=== PATIENT | female | born 1940 | race Caucasian/White ===

== ENCOUNTER 2016-06-29 00:41 | Observation (INO) | payer MEDICARE, MEDICAID ==
[2016-06-29 03:54] LABS: Urine Bacteria 1+ (Absent); Urine Bilirubin Negative (Negative); Urine Glucose Negative (Negative); Urine Nitrite Negative (Negative)
[2016-06-29] MEDS ORDERED: Ciprofloxacin 400MG IVPREMIX(* 400 MG/200 ML BAG IVPB ONE (04:21)
[2016-06-29] MEDS ORDERED: NS 0.9% 1000 ML* 2,000 ML IV ONE (04:21)
[2016-06-29 05:07] LABS: Hematocrit 37 % (35-47); Hemoglobin 12.3 g/dl (12.0-16.0); Mean Corpuscular HGB Conc 34 g/dl (31-36); Mean Corpuscular Hemoglobin 31 pg (27-31); Mean Corpuscular Volume 92 fL (80-97); Mean Platelet Volume 8 um3 (7.4-10.4); Red Blood Count 3.97 10^6/ul (4.0-5.4); Red Cell Distribution Width 14 % (10.5-15); White Blood Count 10.2 10^3/ul (3.5-10.8)
[2016-06-29 05:16] LABS: Calcium 10.7 mg/dL (8.6-10.3); EGFR African American 77.1 (>60); EGFR Non-African American 59.9 (>60); Potassium 4.2 mmol/L (3.5-5.0)
[2016-06-29] MEDS ORDERED: Senna TAB PO PRN (07:41)
[2016-06-29] MEDS ORDERED: Dextrose 50% Syringe 50 ML* 25 GM/50 ML SYRINGE IV PUSH PRN (07:53)
--- NOTE | 2016-06-29 07:54 | ADMNOTE ---
Subjective Date of Service: 06/29/16 Interval History: ADMISSION HISTORY AND PHYSICAL EXAM: Allergies Allergy/AdvReac Type Severity Reaction Status Date / Time No Known Allergies Allergy Verified 06/29/16 07:21 Home Medications Medication Instructions Recorded Confirmed Type Aspirin [Aspirin 81 MG TAB] 81 mg PO 06/29/16 History Atenolol TAB* [Tenormin TAB* 50 MG] 50 mg PO DAILY 06/29/16 06/29/16 History Calcium Carbonate-Vitamin D 2 tab PO 06/29/16 History [Calcium 600+D] Cyanocobalamin [Vitamin B 12] 1,000 mcg PO DAILY 06/29/16 06/29/16 History Docusate Sodium [Stool Softener] 100 mg PO DAILY 06/29/16 06/29/16 History Magnesium [Magnesium] 800 mg PO BID 06/29/16 06/29/16 History Memantine TAB* [Namenda TAB*] 28 mg PO DAILY 06/29/16 06/29/16 History Metformin HCl [Glucophage] 850 mg PO BID 06/29/16 06/29/16 History Multiple Vitamin [Multi Vitamin] 1 tab PO 06/29/16 History [place]-3 Fatty Acids [Fish Oil] 1,500 mg PO 06/29/16 History Senna TAB* [Senokot TAB*] 1 tab PO BID PRN 06/29/16 06/29/16 History Simvastatin TAB(NF) [Zocor(NF)] 20 mg PO 1700 06/29/16 06/29/16 History Vinpocetine 5 mg PO DAILY 06/29/16 06/29/16 History HPI: The patient lives with her daughter. She has had about 3or more UTI's treated by Dr. Oscar Ruiz in the past 12 months. The daughter noticed her mother's urine smelled bad and the patient seemd to have dysuria by her posture and facial expresion while voiding. The daughter also noted that her mother seemed more tired although the daughter also states that her mother "doen't do anything." Family History: Findings - DM, CAD, Parkinson's in her children Social History: Findings - Ex-smoker. Lives with her daugter who is her SDM. No alcohol abuse. Past Medical History: Findings - CABG, colostomy, 8 children Review of Systems - Review of Systems Constitutional Symptoms: Negative: Weight Gain, Weight Loss, Weakness, Fatigue, Fever, Night Sweats, Unexplained Falls, Other Dermatology: Positive: Normal HEENT: Positive: Normal Eyes: Positive: Normal Thyroid: Positive: Normal Pulmonary: Positive: Normal Cardiology: Positive: Normal Gastroenterology: Positive: Normal Genital - Urinary: Positive: Dysuria Musculoskeletal: Negative: Joint Pain, Joint Stiffness, Arthritis, Osteoporosis, Low Back Pain , Sciatica, Joint Deformities, Kyphoscoliosis, Other Endocrinology: Positive: Diabetes Mellitus Hematologic/Lymphatic: Positive: Anemia Neurology: Positive: Change in Memory Psychiatry: Positive: Normal Allergic/Immunologic: Negative: Hx Anaphylaxis, Hx Angioedema, Hx Environmental, Hx Seasonal, Athsma, Hx HIV, Immunocompromise, Swollen Glands LymphNodes, Other Objective Active Medications: Aspirin (Aspirin Ec Low Dose*) 81 mg PO DAILY JORDEN Atenolol (Tenormin Tab*) 25 mg PO DAILY JORDEN Memantine (Namenda Tab*) 28 mg PO DAILY JORDEN Metformin HCl (Glucophage*) 850 mg PO BID JORDEN Non-Formulary Medication (Docusate Sodium [Stool Softener]) 100 mg PO DAILY JORDEN Non-Formulary Medication (Cyanocobalamin [Vitamin B 12]) 1,000 mcg PO DAILY JORDEN Senna (Senokot Tab*) 1 tab PO BID PRN PRN Reason: CONSTIPATION Simvastatin (Zocor(Nf)) 20 mg PO 1700 JORDEN Vital Signs 06/29/16 06/29/16 07:00 07:39 Temperature 99.3 F Pulse Rate 60 Blood Pressure 142/55 (mmHg) O2 Sat by Pulse 98 Oximetry Oxygen Devices in Use Now: None Appearance: Supine on ED stretcher, sleeping. Looks comfortable. Eyes: No Scleral Icterus Ears/Nose/Mouth/Throat: Clear Oropharnyx, Mucous Membranes Moist Neck: NL Appearance and Movements; NL JVP, No Thyroid Enlargement, Masses Respiratory: Symmetrical Chest Expansion and Respiratory Effort, Clear to Auscultation, Clear to Percussion Cardiovascular: NL Sounds; No Murmurs; No JVD, RRR, No Edema, - Abdominal: NL Sounds; No Tenderness; No Distention, No Hepatosplenomegaly, - Extremities: No Edema, No Clubbing, Cyanosis, - Skin: No Rash or Ulcers, No Nodules or Sclerosis, - Neurological: - - Sleeping, does not wake during exam. No tremor. Daughter states pt is non-verbal. Result Diagrams: 06/29/16 04:45 06/29/16 04:45 Additional Lab and Data: Lab Results 06/29/16 Range/Units 03:30 Urine Color Straw Urine Appearance Turbid Urine pH 7.0 (5-9) Ur Specific [place] 1.018 (1.010-1.030) Urine Protein 1+(30 mg/dl) H (Negative) Urine Ketones Trace H (Negative) Urine Blood Negative (Negative) Urine Nitrate Negative (Negative) Urine Bilirubin Negative (Negative) Urine Urobilinogen Negative (Negative) Ur Leukocyte Esterase Negative (Negative) Urine WBC (Auto) 1+(6-10/hpf) H (Absent) Urine RBC (Auto) 1+(3-5/hpf) H (Absent) Ur Squamous Epith Cells Present H (Absent) Urine Bacteria 1+ H (Absent) Urine Glucose Negative (Negative) Urine Ascorbic Acid * H (Negative) Assess/Plan/Problems-Billing Assessment: - Patient Problems (1) UTI (urinary tract infection) Current Visit: Yes Status: Acute Comment: Ciprofloxacin given in ED. Start cefuroxime. US kidneys and bladder. Had 1 L NS, monitor I&O's. (2) Dementia Current Visit: Yes Status: Acute Code(s): F03.90 - UNSPECIFIED DEMENTIA WITHOUT BEHAVIORAL DISTURBANCE SNOMED Code(s): 54765103 Comment: Advanced dementia. Continue memantine. (3) CAD (coronary artery disease) Current Visit: Yes Status: Acute Code(s): I25.10 - ATHSCL HEART DISEASE OF [place] CORONARY ARTERY W/O ANG PCTRS SNOMED Code(s): 82140008 Comment: Reduce atenolol due to low diastolic BP. Continue ASA, statin. (4) Diabetes Current Visit: Yes Status: Acute Code(s): E11.9 - TYPE 2 DIABETES MELL[place] WITHOUT COMPLICATIONS SNOMED Code(s): 85647707 Comment: Continue metformin. No IV contrast given or planned. Lispro SS achs.
[2016-06-29] MEDS ORDERED: Enoxaparin(*) 40 MG/0.4 ML SYR SUBCUT SCH (08:00)
[2016-06-29 08:15] LABS: Magnesium 2.2 mg/dL (1.9-2.7)
[2016-06-29] MEDS: metFORMIN* 850 MG TAB PO SCH ×2 (09:49→17:02)
[2016-06-29] MEDS: Memantine XR CAP* 28 MG CAP.XR PO SCH ×2 (09:49→09:58)
[2016-06-29] MEDS: Cyanocobalamin TAB* 500 MCG PO SCH (09:49)
[2016-06-29] MEDS: ceFUROXime TAB(*) 250 MG PO SCH ×2 (09:49→21:43)
[2016-06-29] MEDS: Aspirin EC Low Dose* 81 MG TAB.EC PO SCH ×2 (09:49→10:43)
[2016-06-29] MEDS: Docusate CAP* 100 MG PO SCH (09:50)
[2016-06-29] MEDS: Atenolol TAB* 25 MG PO SCH (09:50)
[2016-06-29] MEDS ORDERED: Magnesium Hydroxide LIQ* 30 ML UDC PO ONE (10:06)
[2016-06-29] MEDS: Insulin LISPRO* 1 UNITS UNIT SUBCUT SCH ×3 (12:13→21:43)
[2016-06-29] MEDS ORDERED: Atorvastatin* 10 MG TAB PO SCH (17:00)
--- NOTE | 2016-06-29 19:14 | RAD ---
INDICATION: Frequent urinary tract infections. COMPARISON: There are no prior studies available for comparison. TECHNIQUE: Multiple real-time images of the kidneys and urinary bladder were obtained. FINDINGS: The kidneys are normal in size shape and echogenicity. The right kidney measured 9.3 x 5.0 x 5.4 cm and the left kidney measured 9.2 x 5.3 x 4.9 cm. No significant focal abnormality or hydronephrosis was present. There is mild diffuse thickening of the bladder wall. There are bilateral ureteral jets present within the urinary bladder.. The patient voided during the exam. IMPRESSION: MILD DIFFUSE THICKENING OF THE WALL OF THE URINARY BLADDER CONSISTENT WITH INCOMPLETE DISTENTION OR CYSTITIS.
[2016-06-30 07:46] VITALS: BP 119/37
[2016-06-30] MEDS: Atenolol TAB* 25 MG PO SCH (07:57)
[2016-06-30] MEDS: metFORMIN* 850 MG TAB PO SCH (08:19)
[2016-06-30] MEDS: ceFUROXime TAB(*) 250 MG PO SCH (08:19)
[2016-06-30] MEDS: Memantine XR CAP* 28 MG CAP.XR PO SCH (08:19)
[2016-06-30] MEDS: Cyanocobalamin TAB* 500 MCG PO SCH (08:19)
[2016-06-30] MEDS: Insulin LISPRO* 1 UNITS UNIT SUBCUT SCH ×2 (08:20→12:16)
[2016-06-30] MEDS ORDERED: Aspirin Low Dose CHEW TAB* 81 MG PO SCH (09:00)
[2016-06-30] MEDS: Docusate CAP* 100 MG PO SCH (09:17)
--- NOTE | 2016-06-30 15:19 | DS ---
CC: Dr. Halle Ruiz; Dr. Matthews. DISCHARGE SUMMARY: DATE OF ADMISSION: DATE OF DISCHARGE: 06/30/16 HOSPITAL COURSE: This 75-year-old woman presented with foul-smelling urine and dysuria. The history is obtained per her daughter with whom she lives. The patient herself has advanced dementia and is nonverbal and could not give any history at all. The patient has had frequent UTIs. She has an appointment to see Dr. Matthews in the very near future. The patient was given a dose of ciprofloxacin in the emergency room. The daughter was concerned about side effects from quinolones which is certainly a consideration. I note her urine culture in March showed E. coli resistant to cefazolin but sensitive to ceftriaxone. I put her on cefuroxime. The daughter noted the morning on the day of discharge that the patient's urine seemed much better in appearance and odor. The patient was acting normally, taking adequate fluid and nutrition. The daughter stayed the night and fed the patient. The patient really had no behavioral disturbances. She is very extremely passive and basically bedridden. She was afebrile. Vital signs were unremarkable. LABORATORY DATA AT DISCHARGE: BUN of 30, creatinine of 0.91. She received intravenous fluids during this hospital stay. Calcium was 10.1, slightly elevated related to dehydration, not to mention her immobility. This could be followed up later as an outpatient. FINAL DIAGNOSES: 1. Probable urinary tract infection. Note, negative ultrasound of kidneys and bladder with low residual volume. 2. Dementia. 3. Coronary artery disease. 4. Diabetes. DISCHARGE MEDICATIONS: 1. Cefuroxime 500 mg b.i.d. for 6 days. 2. Docusate 100 mg daily. 3. Magnesium 800 mg b.i.d. 4. Vitamin B12 1000 mg daily. 5. Vinpocetine 5 mg daily. 6. Simvastatin 20 mg daily at 5 p.m. 7. Metformin 850 mg b.i.d. 8. Senna 1 b.i.d. 9. Memantine 28 mg daily. 10. Atenolol 50 mg daily. 11. [place]-3 fatty acids 1500 mg as prescribed. 12. Multivitamin as prescribed. 13. Calcium and vitamin D two tabs daily. 14. Aspirin 81 mg daily. [id number]/[facility] #: [id number] [facility]
== END 2016-06-30 12:15 | disposition home or self-care (01) ==
LOC: ED 00:41 → MEDTELE 06:57
PROVIDERS: ADMIT Internal Medicine; ATTEND Internal Medicine
DX: N39.0 Urinary tract infection, site not specified (principal); F03.90 Unspecified dementia, unspecified severity, without behavioral disturbance, psychotic disturbance, mood disturbance, and anxiety; I25.10 Atherosclerotic heart disease of native coronary artery without angina pectoris; E11.9 Type 2 diabetes mellitus without complications; Z79.84 Long term (current) use of oral hypoglycemic drugs; Z79.899 Other long term (current) drug therapy; Z87.891 Personal history of nicotine dependence
CPT/HCPCS: 36415; 76770; 80048; 81003; 81015; 83735; 85027; 87040; 87077; 87086; 87186; 96361; 96365; 99284; A9270-GY; G0378; J0744

== ENCOUNTER → 2018-12-01 11:46 | Day surgery (SDC) | payer MEDICARE, MEDICAID ==
[~2018-12-01 11:46] MED LIST: Buffered Lidocaine 1% SYRIN* 1 ML/SYRINGE INTRADERM ONE; Bupivacaine 0.25% SDV PF* 10 ML VIAL INJ ONE; Bupivacaine 0.5%* 50 ML MDV VIAL ONE; Lactated Ringers 1000 ML Bag* 1,000 ML IV SCH; Lidocaine 2% PF * 5 ML VIAL ONE; Naloxone* 0.4 MG/ML 1 ML VIAL IV PRN; Propofol* 10 MG/ML 20 ML BTL ONE; ceFAZolin 2 GM in NS PREMIX(*) 2 GM/100 ML BAG IVPB ONE
[2018-12-01 18:00] VITALS: BP 148/72
== END | disposition home or self-care (01) ==
LOC: OR 11:46
PROVIDERS: ATTEND Plastic Surgery
DX: D03.62 Melanoma in situ of left upper limb, including shoulder (principal); G30.9 Alzheimer's disease, unspecified; F02.80 Dementia in other diseases classified elsewhere, unspecified severity, without behavioral disturbance, psychotic disturbance, mood disturbance, and anxiety; E11.9 Type 2 diabetes mellitus without complications; Z79.84 Long term (current) use of oral hypoglycemic drugs; I10 Essential (primary) hypertension; R13.10 Dysphagia, unspecified; I25.10 Atherosclerotic heart disease of native coronary artery without angina pectoris; Z95.1 Presence of aortocoronary bypass graft; Z87.891 Personal history of nicotine dependence
CPT/HCPCS: 88305; 88311; J0690; J2704; J3490

== ENCOUNTER 2019-05-02 17:47 | Emergency (ER) | payer MEDICARE, MEDICAID ==
--- NOTE | 2019-05-02 18:04 | ED ---
Shortness of Breath - HPI Summary HPI Summary: Patient has history of dementia, unable to provide history of present illness. Patient lives with daughter states she brought patient in for intermittent low- grade fever, fatigue and noisy breathing 2 days. Daughter has been giving patient Mucinex, but states noise of breathing is progressing. Denies rash, vomiting, indication of pain, diarrhea, change in Baseline mental status. Patient medical history is CAD with bypass 10 years ago (no cardiac workup since ), DM, dementia. - History of Current Complaint Chief Complaint: EDRespiratoryDistress Time Seen by Provider: 05/02/19 18:01 Hx Obtained From: Family/Supervisor [employer] Onset/Duration: Gradual Onset, Lasting Days Timing: Constant Current Severity: Moderate Dyspnea At: Rest Aggravating Factors: Nothing Alleviating Factors: Nothing Associated Signs & Symptoms: Wheezing, Fever - Allergy/Home Medications Allergies/Adverse Reactions: Allergies Allergy/AdvReac Type Severity Reaction Status Date / Time sulfamethoxazole Allergy Hives Verified 12/01/18 13:49 [From Bactrim] trimethoprim [From Bactrim] Allergy Hives Verified 12/01/18 13:49 PMH/Surg Hx/FS Hx/Imm Hx Endocrine/Hematology History: Reports: Hx Diabetes - TYPE II- ON ORAL MEDICATION FOR, Hx Anemia Cardiovascular History: Reports: Hx Angina - HX OF PRIOR TO BYPASS, Hx Coronary Artery Disease - BYPASS-2004 SURGERY, Hx Hypertension - ON MEDICATION FOR Denies: Hx Pacemaker/ICD, Other Cardiovascular Problems/Disorders Respiratory History: Denies: Other Respiratory Problems/Disorders GI History: Denies: Other GI Disorders History: Reports: Other Problems/Disorders - HX OF BLADDER INFECTIONS- REPORTS NONE RECENTLY Denies: Hx Renal Disease Musculoskeletal History: Reports: Other Musculoskeletal History - RIGID-DOES NOT AMBULATE-TRANSPORTATION VIA WHEELCHAIR Denies: Hx Arthritis, Hx Osteoporosis Sensory History: Reports: Hx Cataracts, Hx Contacts or Glasses - GLASSES Denies: Hx Hearing Aid Opthamlomology History: Reports: Hx Cataracts, Hx Contacts or Glasses - GLASSES Neurological History: Reports: Hx Dementia - End stage Alzheimer's disease, Other Neuro Impairments/Disorders - [id number] DISEASE Psychiatric History: Denies: Hx Panic Disorder - Surgical History Surgery Procedure, Year, and Place: CATARACTS. CARDIAC BYPASS - TRIPLE. ( CHEST CLEARED OF OTHER IMPLANTS, STERNAL WIRES AND EVIDENCE OF BYPASS). COLON RESECTION. CYST REMOVED FROM ARM Hx Anesthesia Reactions: No - UNKNOWN - Immunization History Date of Tetanus Vaccine: unk Date of Influenza Vaccine: none Infectious Disease History: Unable to Obtain/Confirm Infectious Disease History: Denies: Traveled Outside the [place] in Last 30 Days - Family History Known Family History: Positive: None, Unknown - Social History Alcohol Use: None Hx Substance Use: No Substance Use Type: Reports: None Hx Tobacco Use: - Level 5 CAVEAT secondary to dementia Smoking Status (MU): Former Smoker Have You Smoked in the Last Year: No Review of Systems Positive: Fever Eyes: Negative ENT: Negative Cardiovascular: Negative Positive: Shortness Of Breath Gastrointestinal: Negative Genitourinary: Negative Musculoskeletal: Negative Skin: Negative Neurological: Negative Psychological: Normal All Other Systems Reviewed And Are Negative: Yes Physical Exam Triage Information Reviewed: Yes Vital Signs On Initial Exam: Initial Vitals Temp Pulse Resp BP Pulse Ox 97.4 F 58 20 205/92 96 05/02/19 17:55 05/02/19 17:55 05/02/19 17:55 05/02/19 17:55 05/02/19 17:55 Vital Signs Reviewed: Yes Appearance: Positive: Well-Appearing Skin: Positive: Warm Head/Face: Positive: Normal Head/Face Inspection Eyes: Positive: Normal Neck: Positive: Supple Respiratory/Lung Sounds: Positive: Rhonchi Cardiovascular: Positive: Normal Abdomen Description: Positive: Nontender Musculoskeletal: Positive: Normal Neurological: Positive: Normal Psychiatric: Positive: Normal AVPU Assessment: Alert - Linda Coma Scale Best Eye Response: 4 - Spontaneous Best Motor Response: 6 - Obeys Commands Best Verbal Response: 5 - Oriented Coma Scale Total: 15 Procedures - Sedation Patient Received Moderate/Deep Sedation with Procedure: No Diagnostics - Vital Signs Vital Signs Temp Pulse Resp BP Pulse Ox 05/02/19 17:55 97.4 F 58 20 205/92 96 - Laboratory Result Diagrams: 05/02/19 18:25 05/02/19 18:25 Lab Statement: Any lab studies that have been ordered have been reviewed, and results considered in the medical decision making process. Course/Dx - Course Course Of Treatment: Patient has history of dementia, unable to provide history of present illness. Patient lives with daughter states she brought patient in for intermittent low-grade fever, fatigue and noisy breathing 2 days. Daughter has been giving patient Mucinex, but states noise of breathing is progressing. Denies rash, vomiting, indication of pain, diarrhea, change in Baseline mental status. Patient medical history is CAD with bypass 10 years ago (no cardiac workup since), DM, dementia, hypertension. Elevated BP. Bradycardic, history of same. Patient states compliant with blood pressure medications. Vital signs within normal limits otherwise. Hemoglobin 11.1, patient baseline. Labs otherwise unremarkable. Chest x-ray negative for acute process. Patient positive for flu b. EKG sinus bradycardia with heart rate of 57, prolonged [place] interval. No prior on file. UA positive for UTI. Daughter states patient has chronic recurrent UTI, per primary care they do not always treat. Daughter will consult with PCP on treating UTI. Tamiflu given here in the ED. Rx for same. - Diagnoses Provider Diagnoses: Flu, UTI (urinary tract infection) Discharge ED - Sign-Out/Discharge Documenting (check all that apply): Patient Departure - Discharge Plan Condition: Stable Disposition: HOME Prescriptions: Oseltamivir CAP* [Tamiflu CAP*] 75 mg PO BID 5 Days #10 cap Patient Education Materials: Urinary Tract Infection in Women (ED), Influenza ( ED) Referrals: Halle Ruiz MD [Primary Care Provider] - Additional Instructions: Take Tamiflu as directed. Consult with your PCP regarding UTI treatment for patient. Return to the ED for any new or worsening symptoms. - Billing Disposition and Condition Condition: STABLE Disposition: Home
[2019-05-02 18:40] LABS: Hematocrit 32 % (35-47); Hemoglobin 11.1 g/dL (12.0-16.0); Mean Corpuscular HGB Conc 35 g/dL (31-36); Mean Corpuscular Hemoglobin 32 pg (27-31); Mean Corpuscular Volume 90 fL (80-97); Mean Platelet Volume 7.4 fL (7.4-10.4); Platelet Count 221 10^3/uL (150-450); Red Blood Count 3.49 10^6 /uL (3.70-4.87); Red Cell Distribution Width 14 % (10-15); White Blood Count 7.9 10^3/uL (3.5-10.8)
[2019-05-02 18:42] LABS: Influenza B Molecular POSITIVE (Negative)
[2019-05-02 18:53] LABS: Albumin 4.1 g/dL (3.2-5.2); Albumin/Globulin Ratio 1.4 (1-3); BUN/Creatinine Ratio 26.6 (8-20); C Reactive Protein 3.22 mg/L (<8.01); Calcium 9.8 mg/dL (8.6-10.3); EGFR African American 69.3 (>60); EGFR Non-African American 57.3 (>60); Potassium 4.2 mmol/L (3.5-5.0); Total Bilirubin 0.3 mg/dL (0.2-1.0); Total Protein 7.1 g/dL (6.4-8.9)
[2019-05-02 18:54] LABS: Troponin I 0.02 ng/mL (<0.03)
[2019-05-02] MEDS ORDERED: Oseltamivir SUSP 75 MG dose* 75 MG/12.5 ML ORAL.SYRIN PO ONE (19:44)
[2019-05-02 19:49] LABS: ABS Eosinophils 0.1 10^3/ul (0-0.6); ABS Lymphocytes 4.6 10^3/ul (1.0-4.8); ABS Monocytes 0.4 10^3/ul (0-0.8); ABS Neutrophils 2.8 10^3/ul (1.5-7.7); Eosinophil % 1.3 %; Lymphocyte % 58.3 %
[2019-05-02 20:19] LABS: Urine Appearance Turbid; Urine Bilirubin Negative (Negative); Urine Blood 1+ (Negative); Urine Color Amber; Urine Glucose Negative (Negative); Urine Ketones Negative (Negative); Urine Nitrite Positive (Negative); Urine Protein 1+(30 mg/dL) (Negative); Urine Specific Gravity 1.013 (1.010-1.030); Urine Urobilinogen Negative (Negative)
[2019-05-02 20:23] LABS: Urine Bacteria 2+ (Absent); Urine Red Blood Cell 3+(>10/hpf) (Absent); Urine Squamous Epithelial Cell Present (Absent); Urine Transitional Epithelial Present (Absent); Urine White Blood Cell 3+(>20/hpf) (Absent)
[2019-05-02] MEDS ORDERED: Cephalexin CAP* 500 MG PO ONE (20:57)
[2019-05-02 22:53] VITALS: BP 147/72
--- NOTE | 2019-05-05 12:48 | ED ---
Imaging and Labs Follow Up Follow Up Type: Labs/Cultures Labs/Culture Result: Urine culture >100k citrobacter freundii. Patient Communication/Plan: Pt. seen in ED for influenza. Urinalysis nitrate positive and provider informed family of UTI. Per ER note pt. with chronic UTI. Pt.'s family did not want pt. treated with antibx. and wanted to f.u with PCP. No change in treatment needed. Provider Diagnoses: Flu, UTI (urinary tract infection)
== END 2019-05-02 22:52 | disposition home or self-care (01) ==
LOC: ED 17:47
DX: J10.1 Influenza due to other identified influenza virus with other respiratory manifestations (principal); N39.0 Urinary tract infection, site not specified; Z87.440 Personal history of urinary (tract) infections; R00.1 Bradycardia, unspecified; E11.9 Type 2 diabetes mellitus without complications; Z79.84 Long term (current) use of oral hypoglycemic drugs; I10 Essential (primary) hypertension; G30.9 Alzheimer's disease, unspecified; F02.80 Dementia in other diseases classified elsewhere, unspecified severity, without behavioral disturbance, psychotic disturbance, mood disturbance, and anxiety; Z95.1 Presence of aortocoronary bypass graft; Z88.2 Allergy status to sulfonamides; Z87.891 Personal history of nicotine dependence
CPT/HCPCS: 36415; 71046; 80053; 81003; 81015; 82803; 84484; 85025; 86140; 87077; 87086; 87186; 93005; 99283; A9270-GY

== ENCOUNTER 2020-07-21 13:10 | Inpatient (IN) ==
[2020-07-21 14:22] LABS: ABS Lymphocytes 1.5 10^3/ul (1.0-4.8); ABS Monocytes 0.4 10^3/ul (0-0.8); ABS Neutrophils 7.3 10^3/ul (1.5-7.7); Eosinophil % 0.5 %; Hematocrit 36 % (35-47); Lymphocyte % 15.8 %; Mean Corpuscular HGB Conc 34 g/dL (31-36); Mean Corpuscular Hemoglobin 31 pg (27-31); Mean Corpuscular Volume 92 fL (80-97); Mean Platelet Volume 7.2 fL (7.4-10.4); Platelet Count 323 10^3/uL (150-450); Red Blood Count 3.88 10^6 /uL (3.70-4.87); Red Cell Distribution Width 15 % (10-15); White Blood Count 9.2 10^3/uL (3.5-10.8)
[2020-07-21 14:46] LABS: ALT 63 U/L (7-52); AST 51 U/L (13-39); Albumin 3.9 g/dL (3.2-5.2); Albumin/Globulin Ratio 1.1 (1-3); Alkaline Phosphatase 32 U/L (34-104); Anion Gap 13 mmol/L (2-11); Blood Urea Nitrogen 23 mg/dL (6-24); C Reactive Protein 152.88 mg/L (<8.01); CO2 Carbon Dioxide 20 mmol/L (22-32); Calcium 9.5 mg/dL (8.6-10.3); Chloride 102 mmol/L (101-111); EGFR African American 59.6 (>60); EGFR Non-African American 49.2 (>60); Globulin 3.4 g/dL (2-4); Glucose 296 mg/dL (70-100); Potassium 4.2 mmol/L (3.5-5.0); Sodium 135 mmol/L (135-145); Total Protein 7.3 g/dL (6.4-8.9)
[2020-07-21 14:56] LABS: Troponin I 0.04 ng/mL (<0.03)
[2020-07-21] MEDS ORDERED: Piperacillin/Tazobac ADVAN 3.375 GM in NS 0.9% 100 ml BAG 100 ML IV ONE (16:10)
[2020-07-21] MEDS ORDERED: Dextrose 50% Syringe 50 ml 25 GM/50 ML SYRINGE IV PUSH PRN (17:30)
[2020-07-21] MEDS ORDERED: Iodixanol (CONTRAST) 320 MG/ML 100 ML SDV IV ONE (17:44)
[2020-07-21] MEDS ORDERED: Zosyn per Pharmacy NOTE FOLLOW UP SCH (18:00)
[2020-07-21 18:20] LABS: Troponin I 0.04 ng/mL (<0.03)
[2020-07-21] MEDS: NS 0.9% 1000 ml BAG 1,000 ML IV SCH (21:38)
[2020-07-21] MEDS: Heparin 5000 UNITS/ML 1 mL VIAL SUBCUT SCH (23:15)
[2020-07-21] MEDS: ZOSYN 3.375 GM Q8H per EXTENDED INFUSION IV SCH (23:15)
[2020-07-21] MEDS: Nystatin TOP POWDER 15 GM BTL TOPICAL SCH (23:16)
[2020-07-21 23:21] LABS: Troponin I 0.12 ng/mL (<0.03)
[2020-07-22 03:19] LABS: Troponin I 0.13 ng/mL (<0.03)
[2020-07-22] MEDS ORDERED: Haloperidol 5 mg/ml SDV IV/IM 5 MG/ML AMP IV SLOW PU ONE (05:39)
[2020-07-22] MEDS: ZOSYN 3.375 GM Q8H per EXTENDED INFUSION IV SCH ×3 (05:51→22:48)
[2020-07-22] MEDS: Heparin 5000 UNITS/ML 1 mL VIAL SUBCUT SCH ×3 (05:51→22:47)
[2020-07-22 05:53] LABS: ABS Lymphocytes 1.5 10^3/ul (1.0-4.8); ABS Monocytes 0.4 10^3/ul (0-0.8); Eosinophil % 0.1 %; Hematocrit 33 % (35-47); Hemoglobin 11.1 g/dL (12.0-16.0); Lymphocyte % 25.8 %; Mean Corpuscular HGB Conc 34 g/dL (31-36); Mean Corpuscular Hemoglobin 31 pg (27-31); Mean Corpuscular Volume 93 fL (80-97); Mean Platelet Volume 7.7 fL (7.4-10.4); Nucleated Red Blood Cells % 0.2; Platelet Count 300 10^3/uL (150-450); Red Blood Count 3.54 10^6 /uL (3.70-4.87); Red Cell Distribution Width 15 % (10-15)
[2020-07-22 06:03] LABS: ALT 47 U/L (7-52); AST 26 U/L (13-39); Albumin 3.7 g/dL (3.2-5.2); Albumin/Globulin Ratio 1.2 (1-3); Alkaline Phosphatase 28 U/L (34-104); Anion Gap 14 mmol/L (2-11); Blood Urea Nitrogen 30 mg/dL (6-24); CO2 Carbon Dioxide 20 mmol/L (22-32); Calcium 9.2 mg/dL (8.6-10.3); Chloride 103 mmol/L (101-111); EGFR African American 59.6 (>60); EGFR Non-African American 49.2 (>60); Globulin 3.2 g/dL (2-4); Glucose 304 mg/dL (70-100); Indirect Bilirubin 0.4 mg/dL (0.3-1.0); Potassium 3.9 mmol/L (3.5-5.0); Sodium 137 mmol/L (135-145); Total Protein 6.9 g/dL (6.4-8.9)
[2020-07-22] MEDS: Aspirin EC 81 mg TAB.EC (enteric coated) PO SCH (08:47)
[2020-07-22] MEDS: Nystatin TOP POWDER 15 GM BTL TOPICAL SCH ×2 (10:23→20:18)
[2020-07-22] MEDS: NS 0.9% 1000 ml BAG 1,000 ML IV SCH (10:32)
[2020-07-22] MEDS ORDERED: NS 0.9% 1000 ml BAG 1,000 ML IV SCH ×2 (10:45→21:07)
[2020-07-22 15:03] LABS: Troponin I 0.07 ng/mL (<0.03)
[2020-07-23] MEDS: Heparin 5000 UNITS/ML 1 mL VIAL SUBCUT SCH ×3 (05:27→22:19)
[2020-07-23] MEDS: ZOSYN 3.375 GM Q8H per EXTENDED INFUSION IV SCH ×3 (05:28→22:19)
[2020-07-23] MEDS: Aspirin EC 81 mg TAB.EC (enteric coated) PO SCH (07:19)
[2020-07-23] MEDS: Nystatin TOP POWDER 15 GM BTL TOPICAL SCH ×2 (07:20→22:18)
[2020-07-23 08:51] LABS: ABS Eosinophils 0.1 10^3/ul (0-0.6); ABS Lymphocytes 2.9 10^3/ul (1.0-4.8); ABS Monocytes 0.5 10^3/ul (0-0.8); Eosinophil % 0.8 %; Hematocrit 31 % (35-47); Hemoglobin 10.4 g/dL (12.0-16.0); Lymphocyte % 33.9 %; Mean Corpuscular HGB Conc 34 g/dL (31-36); Mean Corpuscular Hemoglobin 31 pg (27-31); Mean Corpuscular Volume 92 fL (80-97); Mean Platelet Volume 7.3 fL (7.4-10.4); Platelet Count 351 10^3/uL (150-450); Red Blood Count 3.37 10^6 /uL (3.70-4.87); Red Cell Distribution Width 15 % (10-15); White Blood Count 8.4 10^3/uL (3.5-10.8)
[2020-07-23 09:12] LABS: Albumin 3.8 g/dL (3.2-5.2); Albumin/Globulin Ratio 1.2 (1-3); Calcium 9.4 mg/dL (8.6-10.3); EGFR African American 79.8 (>60); Globulin 3.2 g/dL (2-4); Potassium 3.6 mmol/L (3.5-5.0); Total Bilirubin 0.4 mg/dL (0.2-1.0)
[2020-07-23] MEDS ORDERED: Furosemide 40 mg/4 ml IV VIAL ONE (17:39)
[2020-07-23] MEDS ORDERED: Furosemide 40 mg/4 ml IV VIAL IV ONE (17:39)
[2020-07-24] MEDS: ZOSYN 3.375 GM Q8H per EXTENDED INFUSION IV SCH ×3 (05:10→21:19)
[2020-07-24] MEDS: Heparin 5000 UNITS/ML 1 mL VIAL SUBCUT SCH ×3 (05:10→21:19)
[2020-07-24 07:10] LABS: ABS Eosinophils 0.1 10^3/ul (0-0.6); ABS Lymphocytes 3.5 10^3/ul (1.0-4.8); ABS Monocytes 0.5 10^3/ul (0-0.8); ABS Neutrophils 4.4 10^3/ul (1.5-7.7); Eosinophil % 1.1 %; Hematocrit 29 % (35-47); Hemoglobin 9.7 g/dL (12.0-16.0); Lymphocyte % 40.9 %; Mean Corpuscular HGB Conc 34 g/dL (31-36); Mean Corpuscular Hemoglobin 31 pg (27-31); Mean Corpuscular Volume 91 fL (80-97); Mean Platelet Volume 7.6 fL (7.4-10.4); Nucleated Red Blood Cells % 0.1; Platelet Count 315 10^3/uL (150-450); Red Blood Count 3.17 10^6 /uL (3.70-4.87); Red Cell Distribution Width 14 % (10-15); White Blood Count 8.5 10^3/uL (3.5-10.8)
[2020-07-24 07:21] LABS: Calcium 9.1 mg/dL (8.6-10.3); EGFR Non-African American 57.9 (>60); Magnesium 1.5 mg/dL (1.9-2.7); Potassium 3.1 mmol/L (3.5-5.0)
[2020-07-24] MEDS ORDERED: Magnesium Sulf 4 GM/100 ML IV 4,000 MG/100 ML BAG IVPB ONE (08:00)
[2020-07-24] MEDS: KCL 20 MEQ/100 ML IVPREMIX 20 MEQ/100 ML BAG IV SCH ×2 (08:09→10:43)
[2020-07-24] MEDS: Aspirin EC 81 mg TAB.EC (enteric coated) PO SCH (09:01)
[2020-07-24 09:04] LABS: Urine Appearance Clear; Urine Color Straw
[2020-07-24 09:05] LABS: Urine Bilirubin Negative (Negative); Urine Blood Negative (Negative); Urine Glucose Negative (Negative); Urine Ketones Negative (Negative); Urine Nitrite Negative (Negative); Urine Protein Negative (Negative); Urine Urobilinogen Negative (Negative)
[2020-07-24 09:08] LABS: Urine Bacteria Absent (Absent); Urine Red Blood Cell Absent (Absent); Urine Squamous Epithelial Cell Present (Absent); Urine White Blood Cell 2+(11-20/hpf) (Absent)
[2020-07-24] MEDS ORDERED: Metoprolol Tartrate 5 mg VIAL 5 ml VIAL (1 mg/ml) ONE (10:07)
[2020-07-24] MEDS: Nystatin TOP POWDER 15 GM BTL TOPICAL SCH ×2 (11:00→21:21)
[2020-07-24] MEDS ORDERED: Iodixanol (CONTRAST) 320 MG/ML 100 ML SDV IV ONE (12:23)
[2020-07-24] MEDS ORDERED: Perflutren Lipid Microsphere 3 ML VIAL ONE (14:04)
[2020-07-25] MEDS: Heparin 5000 UNITS/ML 1 mL VIAL SUBCUT SCH ×3 (05:21→20:49)
[2020-07-25] MEDS: ZOSYN 3.375 GM Q8H per EXTENDED INFUSION IV SCH ×3 (05:22→20:50)
[2020-07-25 05:24] LABS: ABS Eosinophils 0.1 10^3/ul (0-0.6); ABS Lymphocytes 3.3 10^3/ul (1.0-4.8); ABS Monocytes 0.5 10^3/ul (0-0.8); ABS Neutrophils 4.4 10^3/ul (1.5-7.7); Eosinophil % 1.2 %; Hematocrit 27 % (35-47); Hemoglobin 9.2 g/dL (12.0-16.0); Mean Corpuscular HGB Conc 34 g/dL (31-36); Mean Corpuscular Hemoglobin 31 pg (27-31); Mean Corpuscular Volume 91 fL (80-97); Platelet Count 315 10^3/uL (150-450); Red Blood Count 2.97 10^6 /uL (3.70-4.87); Red Cell Distribution Width 15 % (10-15); White Blood Count 8.3 10^3/uL (3.5-10.8)
[2020-07-25 05:35] LABS: Activated Partial Thrombo Time 31.2 seconds (26.0-38.0); INR 1.1 (0.82-1.09)
[2020-07-25 05:39] LABS: Calcium 8.8 mg/dL (8.6-10.3); EGFR African American 79.8 (>60); Magnesium 2.2 mg/dL (1.9-2.7); Phosphorus 3.3 mg/dL (2.5-5.0); Potassium 3.2 mmol/L (3.5-5.0)
[2020-07-25] MEDS ORDERED: Potassium Chlor 20 meq TAB.ER PO ONE (05:57)
[2020-07-25] MEDS: KCL 10 MEQ/50 ML IVPREMIX 10 MEQ/50 ML BAG IV SCH ×4 (06:10→09:54)
[2020-07-25] MEDS: Aspirin EC 81 mg TAB.EC (enteric coated) PO SCH (07:19)
[2020-07-25] MEDS: Nystatin TOP POWDER 15 GM BTL TOPICAL SCH ×2 (07:21→20:50)
[2020-07-25] MEDS: Pantoprazole VIAL 40 MG VIAL IV SCH (10:09)
[2020-07-25] MEDS ORDERED: Rocuronium 50 mg VIAL 10 mg/ml 5 ml VIAL (50 mg) ONE ×2 (11:27→13:32)
[2020-07-25] MEDS ORDERED: Ketamine HCL 50 mg/ml 10 ml VIAL (500 MG) ONE (11:29)
[2020-07-25] MEDS ORDERED: Midazolam 2 mg/2 ml VIAL 1 mg/ml 2 ml VIAL (2 mg) ONE (11:30)
[2020-07-25] MEDS ORDERED: fentaNYL 100 mcg/2 ml 50 MCG/ML VIAL ONE (11:31)
[2020-07-25] MEDS ORDERED: Labetalol IV 5 MG/ML 20 ml VIAL ONE (13:50)
[2020-07-25] MEDS ORDERED: Lidocaine 2% PF 5 ML VIAL ONE (13:50)
[2020-07-25] MEDS ORDERED: Propofol 10 MG/ML 20 ML BTL ONE (13:50)
[2020-07-25] MEDS ORDERED: Phenylephrine 40 mcg/mL 10mL (400mcg) SYRINGE ONE (13:50)
[2020-07-25] MEDS ORDERED: Succinylcholine 200 mg VIAL 20 mg/ml 10 ml VIAL (200 mg) ONE (13:50)
[2020-07-25] MEDS ORDERED: Ondansetron 4 mg VIAL 2 MG/ML 2 ml VIAL ONE (13:50)
[2020-07-25] MEDS ORDERED: Acetaminophen IV 1 GM/100ML 100 ML ONE (14:10)
[2020-07-25] MEDS ORDERED: HYDROmorphone 1 MG/1 ML SYRINGE ONE (14:36)
[2020-07-25] MEDS ORDERED: hydrALAZINE 20 mg/ml 1 ML Vial IV ONE (16:11)
[2020-07-25] MEDS ORDERED: hydrALAZINE 20 mg/ml 1 ML Vial IV IV SLOW PU ONE (16:21)
[2020-07-25] MEDS ORDERED: Morphine 2 MG/ML SYRINGE IV PRN ×2 (16:23→16:28)
[2020-07-25] MEDS ORDERED: Ondansetron 4 mg VIAL 2 MG/ML 2 ml VIAL IV PRN (16:45)
[2020-07-25] MEDS: Acetaminophen IV 1 GM/100ML 1,000 MG/100 ML VIAL IVPB SCH (20:49)
[2020-07-25] MEDS: Morphine 2 MG/ML SYRINGE IV PRN (20:53)
[2020-07-26] MEDS: Morphine 2 MG/ML SYRINGE IV PRN ×4 (03:06→17:30)
[2020-07-26 03:35] LABS: ABS Lymphocytes 2.7 10^3/ul (1.0-4.8); ABS Monocytes 0.6 10^3/ul (0-0.8); ABS Neutrophils 6.8 10^3/ul (1.5-7.7); Eosinophil % 0.2 %; Hematocrit 33 % (35-47); Hemoglobin 11.1 g/dL (12.0-16.0); Lymphocyte % 26.8 %; Mean Corpuscular HGB Conc 34 g/dL (31-36); Mean Corpuscular Hemoglobin 31 pg (27-31); Mean Corpuscular Volume 92 fL (80-97); Mean Platelet Volume 7.1 fL (7.4-10.4); Platelet Count 382 10^3/uL (150-450); Red Blood Count 3.58 10^6 /uL (3.70-4.87); Red Cell Distribution Width 15 % (10-15); White Blood Count 10.1 10^3/uL (3.5-10.8)
[2020-07-26 03:46] LABS: Magnesium 1.9 mg/dL (1.9-2.7); Potassium 4.1 mmol/L (3.5-5.0)
[2020-07-26 03:52] LABS: EGFR African American 78.7 (>60); EGFR Non-African American 65.1 (>60); Phosphorus 4.7 mg/dL (2.5-5.0)
[2020-07-26] MEDS: Acetaminophen IV 1 GM/100ML 1,000 MG/100 ML VIAL IVPB SCH ×2 (05:11→14:44)
[2020-07-26] MEDS: Heparin 5000 UNITS/ML 1 mL VIAL SUBCUT SCH ×2 (05:11→17:30)
[2020-07-26] MEDS: ZOSYN 3.375 GM Q8H per EXTENDED INFUSION IV SCH ×3 (05:13→21:41)
[2020-07-26] MEDS ORDERED: Magnesium Sulfate IV 1GM/100ML 1 GM/100 ML BAG IV ONE (05:17)
[2020-07-26] MEDS: Pantoprazole VIAL 40 MG VIAL IV SCH (08:23)
[2020-07-26] MEDS ORDERED: D5LR 1000 ml BAG 1,000 ML IV SCH (09:00)
[2020-07-26] MEDS: Nystatin TOP POWDER 15 GM BTL TOPICAL SCH ×2 (10:38→21:13)
[2020-07-26] MEDS ORDERED: Dextrose 50% Syringe 50 ml 25 GM/50 ML SYRINGE IV PUSH PRN (11:31)
[2020-07-26] MEDS ORDERED: NS 0.9% 100 ml BAG 100 ML ONE (14:41)
[2020-07-27] MEDS: Morphine 2 MG/ML SYRINGE IV PRN (00:56)
[2020-07-27 04:57] LABS: Calcium 8.7 mg/dL (8.6-10.3); EGFR African American 75.6 (>60); EGFR Non-African American 62.5 (>60); Phosphorus 2.7 mg/dL (2.5-5.0); Potassium 3.4 mmol/L (3.5-5.0)
[2020-07-27] MEDS: ZOSYN 3.375 GM Q8H per EXTENDED INFUSION IV SCH (05:11)
[2020-07-27] MEDS: Heparin 5000 UNITS/ML 1 mL VIAL SUBCUT SCH ×2 (05:11→17:58)
[2020-07-27] MEDS: KCL 20 MEQ/100 ML IVPREMIX 20 MEQ/100 ML BAG IV SCH ×2 (05:49→08:59)
[2020-07-27] MEDS: Pantoprazole VIAL 40 MG VIAL IV SCH (08:59)
[2020-07-27] MEDS: Nystatin TOP POWDER 15 GM BTL TOPICAL SCH ×2 (10:49→22:11)
[2020-07-27] MEDS: hydrALAZINE 20 mg/ml 1 ML Vial IV IV SLOW PU PRN (11:35)
[2020-07-28] MEDS: Heparin 5000 UNITS/ML 1 mL VIAL SUBCUT SCH ×2 (05:50→17:53)
[2020-07-28 09:57] LABS: ABS Basophils 0.1 10^3/ul (0-0.2); ABS Eosinophils 0.1 10^3/ul (0-0.6); ABS Lymphocytes 3.2 10^3/ul (1.0-4.8); ABS Neutrophils 6.6 10^3/ul (1.5-7.7); Eosinophil % 1.1 %; Hematocrit 28 % (35-47); Hemoglobin 9.3 g/dL (12.0-16.0); Lymphocyte % 29.6 %; Mean Corpuscular HGB Conc 33 g/dL (31-36); Mean Corpuscular Hemoglobin 31 pg (27-31); Mean Corpuscular Volume 92 fL (80-97); Mean Platelet Volume 7.1 fL (7.4-10.4); Platelet Count 389 10^3/uL (150-450); Red Blood Count 3.03 10^6 /uL (3.70-4.87); Red Cell Distribution Width 15 % (10-15)
[2020-07-28] MEDS: Nystatin TOP POWDER 15 GM BTL TOPICAL SCH ×2 (10:06→20:46)
[2020-07-28] MEDS: Pantoprazole VIAL 40 MG VIAL IV SCH (10:08)
[2020-07-28 10:14] LABS: EGFR African American 88.4 (>60); Potassium 3.4 mmol/L (3.5-5.0)
[2020-07-28] MEDS ORDERED: KCL 10 MEQ/50 ML IVPREMIX 10 MEQ/50 ML BAG IV ONE (16:31)
[2020-07-28] MEDS: Morphine 2 MG/ML SYRINGE IV PRN (17:53)
[2020-07-29] MEDS: Heparin 5000 UNITS/ML 1 mL VIAL SUBCUT SCH ×2 (05:49→17:38)
[2020-07-29] MEDS: Pantoprazole VIAL 40 MG VIAL IV SCH (08:49)
[2020-07-29] MEDS: Nystatin TOP POWDER 15 GM BTL TOPICAL SCH ×2 (08:55→20:38)
[2020-07-29 10:21] LABS: ABS Eosinophils 0.1 10^3/ul (0-0.6); ABS Lymphocytes 3.2 10^3/ul (1.0-4.8); ABS Monocytes 0.7 10^3/ul (0-0.8); ABS Neutrophils 7.3 10^3/ul (1.5-7.7); Eosinophil % 0.9 %; Hematocrit 29 % (35-47); Hemoglobin 9.7 g/dL (12.0-16.0); Lymphocyte % 28.3 %; Mean Corpuscular HGB Conc 33 g/dL (31-36); Mean Corpuscular Hemoglobin 31 pg (27-31); Mean Corpuscular Volume 92 fL (80-97); Mean Platelet Volume 7.4 fL (7.4-10.4); Platelet Count 393 10^3/uL (150-450); Red Blood Count 3.18 10^6 /uL (3.70-4.87); Red Cell Distribution Width 15 % (10-15); White Blood Count 11.4 10^3/uL (3.5-10.8)
[2020-07-29 10:45] LABS: Calcium 8.9 mg/dL (8.6-10.3); EGFR African American 87.1 (>60); EGFR Non-African American 71.9 (>60); Potassium 3.4 mmol/L (3.5-5.0)
[2020-07-29] MEDS: KCL 20 MEQ/100 ML IVPREMIX 20 MEQ/100 ML BAG IV SCH ×2 (12:53→15:34)
[2020-07-30] MEDS: Heparin 5000 UNITS/ML 1 mL VIAL SUBCUT SCH ×2 (05:45→17:57)
[2020-07-30 08:58] LABS: ABS Basophils 0.1 10^3/ul (0-0.2); ABS Eosinophils 0.2 10^3/ul (0-0.6); ABS Lymphocytes 2.6 10^3/ul (1.0-4.8); ABS Monocytes 0.5 10^3/ul (0-0.8); ABS Neutrophils 8.4 10^3/ul (1.5-7.7); Eosinophil % 1.5 %; Hematocrit 27 % (35-47); Hemoglobin 8.7 g/dL (12.0-16.0); Lymphocyte % 21.7 %; Mean Corpuscular HGB Conc 33 g/dL (31-36); Mean Corpuscular Hemoglobin 30 pg (27-31); Mean Corpuscular Volume 92 fL (80-97); Platelet Count 384 10^3/uL (150-450); Red Blood Count 2.89 10^6 /uL (3.70-4.87); Red Cell Distribution Width 15 % (10-15); White Blood Count 11.9 10^3/uL (3.5-10.8)
[2020-07-30 09:16] LABS: Calcium 8.5 mg/dL (8.6-10.3); EGFR African American 100.5 (>60); Magnesium 1.5 mg/dL (1.9-2.7); Potassium 3.6 mmol/L (3.5-5.0)
[2020-07-30] MEDS: Pantoprazole VIAL 40 MG VIAL IV SCH (09:35)
[2020-07-30] MEDS: Nystatin TOP POWDER 15 GM BTL TOPICAL SCH ×2 (09:49→21:23)
[2020-07-30] MEDS ORDERED: Magnesium Sulfate IV 3 GM in NS 0.9% 100 ml BAG 100 ML IVPB ONE (10:00)
[2020-07-30] MEDS: hydrALAZINE 20 mg/ml 1 ML Vial IV IV SLOW PU PRN (12:19)
[2020-07-31] MEDS: Heparin 5000 UNITS/ML 1 mL VIAL SUBCUT SCH ×2 (05:40→18:25)
[2020-07-31 07:04] LABS: ABS Eosinophils 0.1 10^3/ul (0-0.6); ABS Lymphocytes 2.9 10^3/ul (1.0-4.8); ABS Monocytes 0.5 10^3/ul (0-0.8); ABS Neutrophils 8.4 10^3/ul (1.5-7.7); Hematocrit 26 % (35-47); Hemoglobin 8.5 g/dL (12.0-16.0); Lymphocyte % 24.2 %; Mean Corpuscular HGB Conc 33 g/dL (31-36); Mean Corpuscular Hemoglobin 30 pg (27-31); Mean Corpuscular Volume 91 fL (80-97); Mean Platelet Volume 7.2 fL (7.4-10.4); Platelet Count 404 10^3/uL (150-450); Red Blood Count 2.84 10^6 /uL (3.70-4.87); Red Cell Distribution Width 15 % (10-15)
[2020-07-31 07:23] LABS: Calcium 8.2 mg/dL (8.6-10.3); EGFR African American 107.8 (>60); EGFR Non-African American 89.1 (>60); Magnesium 1.8 mg/dL (1.9-2.7); Potassium 3.2 mmol/L (3.5-5.0)
[2020-07-31] MEDS ORDERED: Magnesium Sulfate 2 gm BAG 2 GM/50 ML BAG IVPB ONE (08:28)
[2020-07-31] MEDS: Nystatin TOP POWDER 15 GM BTL TOPICAL SCH ×2 (09:15→20:55)
[2020-07-31] MEDS: Pantoprazole VIAL 40 MG VIAL IV SCH (09:19)
[2020-07-31] MEDS: Potassium Chloride LIQUID 20 MEQ/15 ML LIQUID PO SCH ×2 (09:23→12:08)
[2020-07-31] MEDS: Morphine 2 MG/ML SYRINGE IV PRN (21:13)
[2020-08-01] MEDS: Heparin 5000 UNITS/ML 1 mL VIAL SUBCUT SCH ×2 (05:56→17:45)
[2020-08-01 06:43] LABS: ABS Eosinophils 0.1 10^3/ul (0-0.6); ABS Monocytes 0.7 10^3/ul (0-0.8); Hematocrit 26 % (35-47); Hemoglobin 8.6 g/dL (12.0-16.0); Mean Corpuscular HGB Conc 33 g/dL (31-36); Mean Corpuscular Hemoglobin 30 pg (27-31); Mean Corpuscular Volume 92 fL (80-97); Mean Platelet Volume 7.2 fL (7.4-10.4); Platelet Count 426 10^3/uL (150-450); Red Blood Count 2.87 10^6 /uL (3.70-4.87); Red Cell Distribution Width 15 % (10-15); White Blood Count 12.9 10^3/uL (3.5-10.8)
[2020-08-01 07:00] LABS: Calcium 8.6 mg/dL (8.6-10.3); EGFR African American 98.8 (>60); EGFR Non-African American 81.7 (>60); Magnesium 1.9 mg/dL (1.9-2.7); Potassium 3.9 mmol/L (3.5-5.0)
[2020-08-01] MEDS: Pantoprazole VIAL 40 MG VIAL IV SCH (09:18)
[2020-08-01] MEDS: Nystatin TOP POWDER 15 GM BTL TOPICAL SCH ×2 (09:38→21:04)
[2020-08-02] MEDS: Heparin 5000 UNITS/ML 1 mL VIAL SUBCUT SCH (06:22)
[2020-08-02 07:38] VITALS: BP 136/42
[2020-08-02] MEDS: Pantoprazole VIAL 40 MG VIAL IV SCH (10:24)
[2020-08-02] MEDS: Nystatin TOP POWDER 15 GM BTL TOPICAL SCH (10:26)
== END 2020-08-02 11:15 | disposition home health service (06) ==
LOC: ED 13:10 → MED 17:31 → ICU 07-23 19:57 → SSU 07-27 07:40
PROVIDERS: ADMIT Hospitalist; ATTEND Internal Medicine

== ENCOUNTER 2021-12-15 12:39 | Inpatient (IN) ==
[2021-12-15] MEDS ORDERED: Iodixanol (CONTRAST) 320 MG/ML 100 ML SDV IV ONE (12:58)
[2021-12-15 13:20] LABS: Activated Partial Thrombo Time 30.8 seconds (26.0-38.0); INR 1.04 (0.89-1.11)
[2021-12-15 13:25] LABS: Hematocrit 37 % (35-47); Mean Corpuscular HGB Conc 33 g/dL (31-36); Mean Corpuscular Hemoglobin 30 pg (27-31); Mean Corpuscular Volume 90 fL (80-97); Red Blood Count 4.07 10^6 /uL (3.70-4.87); Red Cell Distribution Width 14 % (10-15); White Blood Count 11.3 10^3/uL (3.5-10.8)
[2021-12-15 13:48] LABS: ALT 20 U/L (7-52); Albumin 4.1 g/dL (3.2-5.2); Albumin/Globulin Ratio 1.2 (1-3); Alkaline Phosphatase 50 U/L (35-149); Blood Urea Nitrogen 12 mg/dL (6-24); CO2 Carbon Dioxide 26 mmol/L (22-32); Calcium 10.1 mg/dL (8.6-10.3); Chloride 103 mmol/L (101-111); Cholesterol 268 mg/dL; Globulin 3.3 g/dL (2-4); Glucose 130 mg/dL (70-100); HDL Cholesterol 44.1 mg/dL; LDL Cholesterol 189 mg/dL; Sodium 137 mmol/L (135-145); Total Protein 7.4 g/dL (6.4-8.9); Triglycerides 176 mg/dL; eGFR CKD-EPI 67.9 (>60)
[2021-12-15 13:53] LABS: Anion Gap 8 mmol/L (2-11)
[2021-12-15 14:16] LABS: Urine Bilirubin Negative (Negative); Urine Color Yellow; Urine Glucose Negative (Negative); Urine Ketones Negative (Negative); Urine pH 5.5 (5.0-9.0)
[2021-12-15 14:17] LABS: Urine Nitrite Positive (Negative); Urine Protein 1+ (30 mg/dL) (Negative); Urine Urobilinogen 0.2 (Negative) (Negative)
[2021-12-15 14:18] LABS: Urine Appearance Turbid
[2021-12-15] MEDS ORDERED: cefTRIAXone 1 gm/50 mL D5W 1 GM/50 ML BAG IV ONE (14:26)
[2021-12-15 14:32] LABS: Urine Bacteria Absent (Absent); Urine Red Blood Cell 3+(>10/hpf) (Absent); Urine Squamous Epithelial Cell Present (Absent); Urine White Blood Cell 3+(>20/hpf) (Absent)
[2021-12-15 14:40] LABS: ABS Basophils 0.1 10^3/ul (0-0.2); ABS Eosinophils 0.2 10^3/ul (0-0.6); ABS Lymphocytes 4.9 10^3/ul (1.0-4.8); ABS Monocytes 0.5 10^3/ul (0-0.8); ABS Neutrophils 5.7 10^3/ul (1.5-7.7); Eosinophil % 1.5 %; Lymphocyte % 43.5 %; Nucleated Red Blood Cells % 0.1; Platelet Count Platelets clumped. 10^3/uL (150-450)
[2021-12-15 15:54] LABS: Potassium Redraw 4.2 mmol/L (3.5-5.0)
[2021-12-15] MEDS ORDERED: NS 0.9% 1000 ml BAG 1,000 ML IV ONE (15:58)
[2021-12-15 17:34] LABS: PCO2 Arterial 37 mmHg (35-45); PO2 Arterial 126 mmHg (80-100)
[2021-12-15] MEDS ORDERED: Lactated Ringers 1000 ml BAG 1,000 ML IV ONE (17:38)
[2021-12-15 19:11] LABS: Mean Platelet Volume 7.1 fL (7.4-10.4); Platelet Count 309 10^3/uL (150-450)
[2021-12-15] MEDS ORDERED: Dextrose 50% Syringe 50 ml 25 GM/50 ML SYRINGE IV PUSH PRN (21:10)
[2021-12-15] MEDS: Enoxaparin 40 MG/0.4 ML SYR SUBCUT SCH (21:17)
[2021-12-15] MEDS: Lactated Ringers 1000 ml BAG 1,000 ML IV SCH (21:21)
[2021-12-16 07:43] LABS: ABS Basophils 0.1 10^3/ul (0-0.2); ABS Eosinophils 0.1 10^3/ul (0-0.6); ABS Lymphocytes 3.3 10^3/ul (1.0-4.8); ABS Monocytes 0.4 10^3/ul (0-0.8); ABS Neutrophils 4.3 10^3/ul (1.5-7.7); Eosinophil % 1.8 %; Hematocrit 32 % (35-47); Hemoglobin 10.8 g/dL (12.0-16.0); Lymphocyte % 39.8 %; Mean Corpuscular HGB Conc 34 g/dL (31-36); Mean Corpuscular Hemoglobin 31 pg (27-31); Mean Corpuscular Volume 90 fL (80-97); Platelet Count 278 10^3/uL (150-450); Red Blood Count 3.54 10^6 /uL (3.70-4.87); Red Cell Distribution Width 14 % (10-15); White Blood Count 8.2 10^3/uL (3.5-10.8)
[2021-12-16 08:25] LABS: C Reactive Protein 31.59 mg/L (<8.01); Calcium 9.3 mg/dL (8.6-10.3); Magnesium 1.7 mg/dL (1.9-2.7); Potassium 3.7 mmol/L (3.5-5.0); eGFR CKD-EPI 77.7 (>60)
[2021-12-16] MEDS: cefTRIAXone 1 gm/50 mL D5W 1 GM/50 ML BAG IV SCH (08:25)
[2021-12-16] MEDS ORDERED: Aspirin EC 81 mg TAB.EC (enteric coated) PO SCH (09:00)
[2021-12-16] MEDS: Lactated Ringers 1000 ml BAG 1,000 ML IV SCH ×2 (09:27→23:05)
[2021-12-16] MEDS ORDERED: Magnesium Sulfate 2 gm BAG 2 GM/50 ML BAG IVPB ONE (16:19)
[2021-12-16] MEDS: Enoxaparin 40 MG/0.4 ML SYR SUBCUT SCH (23:08)
[2021-12-17 06:23] LABS: Magnesium 1.9 mg/dL (1.9-2.7); Potassium 3.7 mmol/L (3.5-5.0)
[2021-12-17 06:28] LABS: Phosphorus 2.7 mg/dL (2.5-5.0); eGFR CKD-EPI 77.7 (>60)
[2021-12-17] MEDS: cefTRIAXone 1 gm/50 mL D5W 1 GM/50 ML BAG IV SCH (08:20)
[2021-12-17] MEDS: Enoxaparin 40 MG/0.4 ML SYR SUBCUT SCH (19:39)
[2021-12-18 05:43] LABS: Hematocrit 33 % (35-47); Hemoglobin 11.3 g/dL (12.0-16.0); Mean Corpuscular HGB Conc 34 g/dL (31-36); Mean Corpuscular Hemoglobin 30 pg (27-31); Mean Corpuscular Volume 90 fL (80-97); Mean Platelet Volume 7.3 fL (7.4-10.4); Platelet Count 280 10^3/uL (150-450); Red Blood Count 3.73 10^6 /uL (3.70-4.87); Red Cell Distribution Width 14 % (10-15); White Blood Count 8.8 10^3/uL (3.5-10.8)
[2021-12-18 06:07] LABS: Calcium 9.2 mg/dL (8.6-10.3); Magnesium 1.8 mg/dL (1.9-2.7); Potassium 3.9 mmol/L (3.5-5.0); eGFR CKD-EPI 81.5 (>60)
[2021-12-18] MEDS: cefTRIAXone 1 gm/50 mL D5W 1 GM/50 ML BAG IV SCH (08:12)
[2021-12-18] MEDS ORDERED: Magnesium Sulfate 2 gm BAG 2 GM/50 ML BAG IVPB ONE (09:10)
[2021-12-18] MEDS: Lactated Ringers 1000 ml BAG 1,000 ML IV SCH ×2 (10:39→22:35)
[2021-12-18] MEDS ORDERED: Acetaminophen IV 1 GM/100ML 650 MG/65 ML BAG IV PRN (16:36)
[2021-12-18] MEDS: Acetaminophen IV 1 GM/100ML 650 MG/65 ML BAG IV PRN (17:37)
[2021-12-18] MEDS: Enoxaparin 40 MG/0.4 ML SYR SUBCUT SCH (22:40)
[2021-12-19] MEDS: Acetaminophen IV 1 GM/100ML 650 MG/65 ML BAG IV PRN (01:40)
[2021-12-19 08:49] LABS: CO2 Carbon Dioxide 21 mmol/L (22-32); Calcium 8.7 mg/dL (8.6-10.3); Chloride 107 mmol/L (101-111); Sodium 138 mmol/L (135-145)
[2021-12-19 08:55] LABS: Blood Urea Nitrogen 8 mg/dL (6-24); Glucose 85 mg/dL (70-100); eGFR CKD-EPI 86.4 (>60)
[2021-12-19 09:02] LABS: Anion Gap 10 mmol/L (2-11)
[2021-12-19] MEDS: cefTRIAXone 1 gm/50 mL D5W 1 GM/50 ML BAG IV SCH (09:13)
[2021-12-19] MEDS ORDERED: Lactated Ringers 1000 ml BAG 1,000 ML IV SCH (13:00)
[2021-12-19 13:01] LABS: Potassium Redraw 3.9 mmol/L (3.5-5.0)
[2021-12-19] MEDS ORDERED: [UNRECOGNIZED DRUG - OTHER] G TUBE ONE (20:00)
[2021-12-19] MEDS ORDERED: BARIUM SULFATE G TUBE ONE (20:00)
[2021-12-20] MEDS ORDERED: fentaNYL 100 mcg/2 ml 50 MCG/ML VIAL ONE (09:24)
[2021-12-20] MEDS: cefTRIAXone 1 gm/50 mL D5W 1 GM/50 ML BAG IV SCH (14:28)
[2021-12-20] MEDS ORDERED: Acetaminophen IV 1 GM/100ML 1,000 MG/100 ML BAG IV ONE (21:00)
[2021-12-20] MEDS: Acetaminophen IV 1 GM/100ML 650 MG/65 ML BAG IV SCH (23:33)
[2021-12-21] MEDS: Acetaminophen IV 1 GM/100ML 650 MG/65 ML BAG IV SCH ×4 (02:21→22:14)
[2021-12-21 07:08] LABS: Albumin 3.5 g/dL (3.2-5.2); Albumin/Globulin Ratio 1.3 (1-3); Calcium 9.2 mg/dL (8.6-10.3); Globulin 2.8 g/dL (2-4); Magnesium 1.7 mg/dL (1.9-2.7); Phosphorus 3.4 mg/dL (2.5-5.0); Potassium 3.5 mmol/L (3.5-5.0); Total Bilirubin 0.3 mg/dL (0.2-1.0); Total Protein 6.3 g/dL (6.4-8.9); eGFR CKD-EPI 85.8 (>60)
[2021-12-21] MEDS ORDERED: Magnesium Sulfate IV 3 GM in NS 0.9% 100 ml BAG 100 ML IVPB ONE (09:00)
[2021-12-21] MEDS: Enoxaparin 40 MG/0.4 ML SYR SUBCUT SCH (09:07)
[2021-12-22 06:39] LABS: Albumin 3.3 g/dL (3.2-5.2); Albumin/Globulin Ratio 1.2 (1-3); Calcium 8.9 mg/dL (8.6-10.3); Globulin 2.8 g/dL (2-4); Magnesium 1.9 mg/dL (1.9-2.7); Phosphorus 3.3 mg/dL (2.5-5.0); Potassium 3.5 mmol/L (3.5-5.0); Total Bilirubin 0.3 mg/dL (0.2-1.0); Total Protein 6.1 g/dL (6.4-8.9)
[2021-12-22] MEDS: Enoxaparin 40 MG/0.4 ML SYR SUBCUT SCH (10:28)
[2021-12-23] MEDS: Enoxaparin 40 MG/0.4 ML SYR SUBCUT SCH (09:10)
[2021-12-24] MEDS: Enoxaparin 40 MG/0.4 ML SYR SUBCUT SCH (12:26)
[2021-12-24] MEDS ORDERED: Acetaminophen IV 1 GM/100ML 1,000 MG/100 ML BAG IV PRN (20:06)
[2021-12-24 20:46] LABS: INR 1.06 (0.89-1.11)
[2021-12-25] MEDS: Enoxaparin 40 MG/0.4 ML SYR SUBCUT SCH (09:17)
[2021-12-25] MEDS ORDERED: fentaNYL 100 mcg/2 ml 50 MCG/ML VIAL ONE (12:56)
[2021-12-25] MEDS ORDERED: ceFAZolin 1 GM ADVAN 1 GM ADDV.VIAL IVPB ONE (12:57)
[2021-12-25] MEDS ORDERED: Bupivacaine 0.25% EPI 200,000 30 ML SDV ONE (12:57)
[2021-12-25] MEDS ORDERED: Lidocaine 1% VIAL 10 MG/ML VIAL ONE (14:32)
[2021-12-26] MEDS: Enoxaparin 40 MG/0.4 ML SYR SUBCUT SCH (10:12)
[2021-12-27] MEDS: Enoxaparin 40 MG/0.4 ML SYR SUBCUT SCH (08:31)
[2021-12-28] MEDS: Enoxaparin 40 MG/0.4 ML SYR SUBCUT SCH (09:21)
[2021-12-28 15:28] VITALS: BP 96/42
== END 2021-12-28 17:30 | disposition home health service (06) | DRG 64 ==
LOC: ED 12:39 → EDHOLD 12:39 → MEDTELE 18:22 → SUATTDRO 12-17 15:03
PROVIDERS: ADMIT Internal Medicine; ATTEND Internal Medicine